=== PATIENT | female | born 1955 | race African-American/Black ===

== ENCOUNTER 2023-01-16 13:53 | Emergency (ER) | payer SELFPAY ==
[2023-01-16 14:10] VITALS: TEMP 98.1; BMI 26.5
[2023-01-16] MEDS ORDERED: ACETAMINOPHEN 1000 MG/100 ML BAG IVPB ONE (14:39)
[2023-01-16] MEDS ORDERED: METOCLOPRAMIDE HCL INJECTION 10 MG/2 ML VIAL IVPB ONE (14:40)
[2023-01-16] MEDS ORDERED: METOCLOPRAMIDE HCL INJECTION 10 MG/2 ML VIAL ONE (15:03)
[2023-01-16] MEDS ORDERED: ACETAMINOPHEN INJECTION 100 ML IVPB ONE (15:03)
[2023-01-16 15:17] LABS: BASO % 0.6 % (0-2.0); EOS % 1.2 % (0-4.5); HEMATOCRIT 41.6 % (32.4-45.2); HEMOGLOBIN 13.9 GM/dL (10.7-15.3); LYMPH % 40.9 % (8-40); MCH 28.7 pg (25.7-33.7); MCHC 33.4 g/dl (32.0-36.0); MEAN CELL VOLUME 86.1 fl (80-96); MEAN PLT VOLUME 8.4 fl (7.5-11.1); MONO % 6.4 % (3.8-10.2); NEUT % 50.9 % (42.8-82.8); PLATELET COUNT 294 10^3/uL (134-434); RBC 4.83 M/mm3 (3.60-5.2); RDW 13.4 % (11.6-15.6); WHITE BLOOD COUNT 6.8 K/mm3 (4.0-10.0)
[2023-01-16 15:22] LABS: INR 0.95 (0.83-1.09)
[2023-01-16 15:25] LABS: ACTIVATED PTT 32.8 SECONDS (25.2-36.5)
[2023-01-16 15:41] LABS: ALBUMIN 3.8 g/dl (3.4-5.0); BLOOD UREA NITROGEN 17.4 mg/dL (7-18); CALCIUM 9.2 mg/dL (8.5-10.1)
[2023-01-16 15:44] LABS: CREATININE 0.6 mg/dL (0.55-1.3)
[2023-01-16 15:46] LABS: BILIRUBIN,TOTAL 0.3 mg/dL (0.2-1); TOT PROT 7.7 g/dl (6.4-8.2)
[2023-01-16 15:49] LABS: N-TERMINAL BNP 54.4 pg/ml (5-125)
[2023-01-16 16:48] VITALS: BP 145/87; PULSE 72; RESP 20
== END 2023-01-16 16:47 | disposition home or self-care (01) ==
LOC: JER 13:53
PROC: 3E033GC Introduction of Other Therapeutic Substance into Peripheral Vein, Percutaneous Approach (ICD-10-PCS; principal; 2023-01-16)
DX: U07.1 COVID-19 (principal); R51.9 Headache, unspecified; R06.02 Shortness of breath; R07.9 Chest pain, unspecified
CPT/HCPCS: 0241U-QW; 36415; 70450-TC; 71045-TC-FY; 80053; 83880; 84484; 85025; 85610; 85730; 93005; 93010; 99285-25